=== PATIENT | male | born 1975 | race Caucasian/White ===

== ENCOUNTER 2021-01-31 07:23 | Emergency (ER) | payer OTHER ==
[2021-01-31] MEDS ORDERED: POLYMYXIN B-TMP10 ML OP (08:49)
== END 2021-01-31 09:00 | disposition home or self-care (01) ==
LOC: ER1 07:23
DX: T15.01XA Foreign body in cornea, right eye, initial encounter (principal); I10 Essential (primary) hypertension; Z79.899 Other long term (current) drug therapy; Z88.1 Allergy status to other antibiotic agents; W45.8XXA Other foreign body or object entering through skin, initial encounter
CPT/HCPCS: 99283